=== PATIENT | female | born 1945 | race Caucasian/White ===

== ENCOUNTER 2017-09-14 11:27 | Outpatient (CLI) | payer MEDICARE | END 2017-09-14 11:28 | disposition home or self-care (01) | LOC: BICRAD 11:27 | PROVIDERS: ATTEND Nurse Practitioner Family | DX: M25.551 Pain in right hip (principal) ==

== ENCOUNTER 2017-10-05 12:12 | Outpatient (CLI) | payer MEDICARE ==
--- NOTE | 2017-10-05 14:36 | MRI ---
MRI CERVICAL SPINE WITHOUT CONTRAST: Technique: Multiplanar, multisequential imaging of the cervical spine obtained. Indications: Neck pain. Bilateral shoulder pain. Cervical radiculopathy. FINDINGS: Cervical vertebra maintain normal height and alignment. Disc spaces are preserved with mild loss of d isc space noted at C5-6 and C6-7. The cervical canal is generous throughout. The anterior subarachnoi d space is preserved throughout the cervical canal. Mild disc bulge and spondylosis is noted at C5-6 and C6-7. These changes flatten the thecal sac at these levels, however, no cord impingement. There i s evidence of mild bilateral foraminal narrowing at C6-7 due to facet and uncinate hypertrophy. Cord signal is normal. IMPRESSION: No evidence of cervical canal stenosis or significant disc protrusion. Spondylosis at C5-6 and C6-7 i s noted and there is evidence of foraminal encroachment bilaterally at C6-7. Spondylosis and disc bul ge at C4-5 and C5-6 is seen and there is foraminal narrowing at C6-7. POS: COLTEN
== END 2017-10-05 12:13 | disposition home or self-care (01) ==
LOC: MRI 12:12
PROVIDERS: ATTEND Anesthesiology Pain Medicine
DX: M47.22 Other spondylosis with radiculopathy, cervical region (principal); M99.81 Other biomechanical lesions of cervical region
CPT/HCPCS: 72141

== ENCOUNTER 2020-10-13 09:43 | Outpatient (CLI) | payer MEDICARE | END 2020-10-13 09:44 | disposition home or self-care (01) | LOC: BICMRI 09:43 | PROVIDERS: ATTEND Nurse Practitioner Family | DX: M51.16 Intervertebral disc disorders with radiculopathy, lumbar region (principal); M47.26 Other spondylosis with radiculopathy, lumbar region | CPT/HCPCS: 72148 ==

== ENCOUNTER 2021-10-08 10:19 | Outpatient (CLI) | payer MEDICARE | END 2021-10-08 10:20 | disposition home or self-care (01) | LOC: BICRAD 10:19 | PROVIDERS: ATTEND Anesthesiology Pain Medicine | DX: M16.11 Unilateral primary osteoarthritis, right hip (principal) ==

== ENCOUNTER 2022-04-26 09:07 | Outpatient (CLI) | payer MEDICARE | END 2022-04-26 09:08 | disposition home or self-care (01) | LOC: MRI 09:07 | PROVIDERS: ATTEND Orthopaedic Surgery | DX: M25.551 Pain in right hip (principal); M70.61 Trochanteric bursitis, right hip; R60.0 Localized edema; R93.7 Abnormal findings on diagnostic imaging of other parts of musculoskeletal system ==

== ENCOUNTER 2022-06-08 08:53 | Outpatient (CLI) | payer MEDICARE | END 2022-06-08 08:54 | disposition home or self-care (01) | LOC: BICMAMMO 08:53 | PROVIDERS: ATTEND Family Medicine | DX: Z12.31 Encounter for screening mammogram for malignant neoplasm of breast (principal); Z91.89 Other specified personal risk factors, not elsewhere classified; M85.89 Other specified disorders of bone density and structure, multiple sites | CPT/HCPCS: 77063; 77067; 77080 ==

== ENCOUNTER 2023-07-23 05:04 | Emergency (ER) | payer MEDICARE ==
[2023-07-23 06:56] LABS: #Eosinphils 0.1 thou/uL (0.0-0.7); #Monocytes 0.4 thou/uL (0.11-0.59); %Basophils 0.7 % (0.0-1.0); %Eosinophils 1.4 % (0.0-10.0); %Monocytes 8.5 % (0.0-10.0); %Neutrophils 45.9 % (42.0-75.0); Hematocrit 44.8 % (36.0-47.0); Hemoglobin 15.4 g/dL (12.0-16.0); Mean Corpuscular HGB CONC 34.4 g/dL (32.0-36.0); Mean Corpuscular Hemoglobin 30.1 pg (27.0-31.0); Mean Corpuscular Volume 87.7 fl (78.0-98.0); Mean Platelet Volume 10.2 fL (7.4-10.4); Platelet Count 262 10x3/uL (130-400); RBC Distribution Width 13.2 % (11.5-14.5); Red Blood Cell (RBC) Count 5.11 mill/uL (4.20-5.40); White Blood Cell (WBC) Count 4.4 10x3/uL (4.8-10.8)
[2023-07-23 07:09] LABS: ALT (SGPT) 45 U/L (8-55); AST (SGOT) 33 U/L (5-34); Albumin 4.7 g/dL (3.4-4.8); Alkaline Phosphatase 78 U/L (40-110); Anion Gap 17 mmol/L (10-20); BUN (Urea Nitrogen) 12 mg/dL (9.8-20.1); Bilirubin, Total 0.8 mg/dL (0.2-1.2); Calc. Creatinine Clearance 0 mL/min (70-130); Calcium 10.2 mg/dL (7.8-10.44); Carbon Dioxide 25 mmol/L (23-31); Chloride 99 mmol/L (98-107); Estimated GFR 75; Glucose 126 mg/dL (83-110); Lipase 84 U/L (8-78); Potassium 3.6 mmol/L (3.5-5.1); Protein, Total 7.7 g/dL (5.8-8.1); Sodium 137 mmol/L (136-145)
[2023-07-23 07:12] LABS: Troponin I 0.012 ng/mL (< 0.028)
== END 2023-07-23 07:23 | disposition home or self-care (01) ==
LOC: ERS 05:04
DX: H81.10 Benign paroxysmal vertigo, unspecified ear (principal); E78.00 Pure hypercholesterolemia, unspecified; I10 Essential (primary) hypertension; Z79.01 Long term (current) use of anticoagulants; Z79.899 Other long term (current) drug therapy
CPT/HCPCS: 71045; 80053; 83690; 84484; 85025; 93005